=== PATIENT | male | born 1965 | race Two or more races ===

== ENCOUNTER 2020-03-16 12:54 | Outpatient (CLI) | payer OTHER, SELFPAY | END 2020-03-16 12:55 | disposition home or self-care (01) | LOC: ANHAUDIO 12:56 | PROVIDERS: PCP Internal Medicine; Visit Provider Otolaryngology | DX: H90.42 Sensorineural hearing loss, unilateral, left ear, with unrestricted hearing on the contralateral side (principal) | CPT/HCPCS: 92557; 92567 ==

== ENCOUNTER → 2021-12-09 10:07 | Outpatient (CLI) | payer OTHER, SELFPAY ==
--- NOTE | ~2021-12-09 | XR_ITS ---
EXAMINATION: XR lumbar spine 6V w bending DATE: 12/09/2021 12:52 INDICATION: Low back pain TECHNIQUE: Anteroposterior, lateral in neutral, flexion and extension, and bilateral oblique views of the lumbar spine, and cone-down lateral view of the lumbosacral junction were obtained. COMPARISON: None. FINDINGS: There is no fracture, dislocation, or subluxation. No laxity is present with flexion or ext ension. The vertebral body heights are normal. There is mild loss of intervertebral disc space height at multiple levels in the lumbar spine. The vertebral body heights are normal. Small degenerative os teophytes project from the anterior endplates of multiple vertebral bodies. IMPRESSION: 1. Mild lumbar spondylosis without acute findings. Reviewed, dictated and finalized at location F. AND FRAME MECHANIC
== END ==
PROVIDERS: PCP Internal Medicine; Visit Provider Internal Medicine
DX: M54.9 Dorsalgia, unspecified (principal); M47.816 Spondylosis without myelopathy or radiculopathy, lumbar region
CPT/HCPCS: 72114

== ENCOUNTER → 2022-02-16 08:06 | Outpatient (CLI) | payer OTHER, SELFPAY ==
[2022-02-16 11:03] LABS: Influenza A QL RT-PCR Negative (Negative); Influenza B QL RT-PCR Negative (Negative); SARS-CoV-2 RNA PCR Negative
== END ==
PROVIDERS: PCP Internal Medicine; Visit Provider Nurse Practitioner
DX: R68.89 Other general symptoms and signs (principal); Z20.822 Contact with and (suspected) exposure to COVID-19
CPT/HCPCS: 87502; C9803; U0003; U0005

== ENCOUNTER 2022-12-22 05:00 | Emergency (ER) | payer OTHER, SELFPAY ==
[2022-12-22] VITALS (12 sets, daily range): BP systolic 126–146; BP diastolic 67–89; PULSE 70–90; RESP 16–24; TEMP 37.1–38.2; O2SAT 95–96
--- NOTE | ~2022-12-22 | XR_ITS ---
EXAMINATION: XR chest 1V portable DATE: 12/22/2022 06:32 INDICATION: Cough TECHNIQUE: frontal view of the chest was obtained. COMPARISON: None FINDINGS: Mild curvilinear discoid atelectasis at the lateral left lung base. There is some mild bronchial wall thickening in the left perihilar region. No other airspace opacities, pulmonary edema, pleural effus ion or pneumothorax. The cardiomediastinal silhouette is normal. Visualized bones and soft tissues ar e unremarkable. IMPRESSION: 1. Mild bronchial wall thickening in the left perihilar region which be seen with bronchitis or react shantanu airway disease/asthma. Reviewed, dictated and finalized at location A. NG MILL OPERATOR IMPRESSION: 1. Mild bronchial wall thickening in the left perihilar region which be seen wi th bronchitis or reactive airway disease/asthma.
--- NOTE | 2022-12-22 05:30 | PC.NURSE ---
Pt c/o suprapubic pain, burning with urination, urinary urgency, and hesitancy. He was diagnosed with a UTI on Saturday and has been taking macrobid. Pt reports ongoing fevers at home that are temporarily resolved with ibuprofen but come back. He also c/o headache, dry cough, and feeling SOB. Pt is tachypneic breathing 24-30 breaths per minute. Denies chest pain. +Nausea. Denies vomiting.
[2022-12-22] MEDS: SODIUM CHLORIDE 0.9% IV 1,000 ML 999 ML IV CONT (05:39)
--- NOTE | 2022-12-22 06:01 | ED.GENADULT ---
HPI - General Adult General Chief complaint: Fever <David Tillman MD - Last Filed: 12/22/22 07:14> Stated complaint: Fever x4 days, dx uti <David Tillman MD - Last Filed: 12/22/22 07:14> Time Seen by Provider: 12/22/22 05:23 <David Tillman MD - Last Filed: 12/22/22 07:14> History of Present Illness HPI narrative: Patient is a 57-year-old gentleman who presents the emergency department with chief complaint of fever. Patient reports that he was seen in urgent care this week and was having fever body aches and generalized malaise the patient also reports he has had some urinary frequency and burning with urination. The patient was diagnosed with a urinary tract infection and started on Macrobid patient reports he is continue to have fevers and also reports that he developed a cough. Patient reports the symptoms are not improving and in fact worsening patient reports he last took ibuprofen several hours ago and has not taken any Tylenol. <David Tillman MD - Last Filed: 12/22/22 07:14> Related Data Home medications: Home Medications Medication Instructions Recorded Confirmed cholecalciferol (vitamin D3) 25 1,000 unit PO DAILY 08/20/19 09/27/22 mcg (1,000 unit) capsule (Vitamin D3) <David Tillman MD - Last Filed: 12/22/22 07:14> Allergies/adverse reactions: Allergies Allergy/AdvReac Type Severity Reaction Status Date / Time RED WINE AdvReac Intermediate Other Uncoded 09/27/22 09:04 <David Tillman MD - Last Filed: 12/22/22 07:14> Review of Systems Review of Systems: A 10 system review of systems was completed on the patient and is negative except for what is stated in the HPI. Nursing and ancillary documentation was reviewed. <David Tillman MD - Last Filed: 12/22/22 07:14> [facility] Past Medical History Medical History: Medical History GERD (gastroesophageal reflux disease) Obesity <David Tillman MD - Last Filed: 12/22/22 07:14> Social History Social History: Social History Smoking status: Never smoker Alcohol intake: current Drinks per week: 1 Alcohol use details: patient may 1 or 2 drinks once a month Substance use: never Substance use type: does not use Lack of Transportation: No Lack of Food: Never True Current Housing: I Have Housing Concerned About Future Housing: No Difficulty Paying Gas/Electric Bills: No Difficulty Paying for Meds: No Currently Unemployed: No Education: Master's Degree or Higher Difficulty w/ Childcare or Family Care: No Living arrangements: alone Occupation/Education: occupation Gender identity (if verbalized by the patient): Male <David Tillman MD - Last Filed: 12/22/22 07:14> Exam Narrative: GENERAL: Well-appearing, well-nourished, and in no acute distress. HEAD: Normocephalic, atraumatic. EYES: PERRLA and EOMI. ENT: Nares clear, no rhinorrhea or epistaxis. Mucous membranes moist. NECK: Supple. CHEST: Clear to auscultation. No respiratory distress. HEART: Regular rate and rhythm. No murmur heard. Normal peripheral pulses. ABDOMEN: Soft, nontender, nondistended, normal active bowel sounds. : No tenderness to palpation, no swelling descended testes no erythema no crepitance no necrotic tissue EXTREMITIES: Normal range of motion. No edema. SKIN: Warm, dry, no rash. NEURO: No focal deficits. Alert and oriented x3. PSYCH: Normal mood and affect. <David Tillman MD - Last Filed: 12/22/22 07:14> Course Reevaluation(s) Reevaluation #1: Patient care was initially signed out to me by Dr. Tillman but patient was discharged by Dr. Tillman prior to the end of his shift. I did not assume care of this patient. <Wil Rangel MD - Last Filed: 12/22/22 10:39>
[2022-12-22 06:18] LABS: Basophils Percent Auto 0.4 % (0.2-1.2); Eosinophils Percent Auto 0.1 % (0-4.4); Hematocrit 39.8 % (42.0-52.0); Hemoglobin 13.9 g/dL (14.0-18.0); Immature Granulocyte Absolute 0.09 K/mm3 (0.00-0.031); Lymphocytes Percent Auto 11.9 % (18.3-44.2); Mean Corpuscular HGB Conc 34.9 g/dl (32-36); Mean Corpuscular Hemoglobin 31.7 pg (26-34); Mean Corpuscular Volume 90.9 fl (80-100); Mean Platelet Volume 10.2 fl (7.4-10.4); Monocytes Absolute Auto 0.8 K/mm3 (0.1-0.6); Monocytes Percent Auto 8.9 % (2.6-8.5); Neutrophils Absolute Auto 7.2 K/mm3 (1.3-6.7); Neutrophils Percent Auto 77.7 % (45.5-73.1); Platelet Count Result 262 k/mm3 (150-375); Red Blood Count 4.38 M/mm3 (4.6-6.20); Red Cell Distribution Width 12.4 % (11.5-14.5); White Blood Count 9.2 K/mm3 (4.5-10.0)
[2022-12-22 06:29] LABS: Appearance Urine Clear (Clear); Bacteria Urine None Seen /hpf; Bilirubin Urine Negative (Negative); Blood Urine 2+ (Negative); Color Urine Yellow (Yellow); Glucose Urine UA Negative (Negative); Ketones Urine Trace mg/dL (Negative); Leukocyte Esterase Ur 1+ LEU/UL (Negative); Nitrate Urine Negative (Negative); Non Pathogenic Casts 0-2; Protein Urine 2+ mg/dL (Negative); Specific Grav Ur 1.019 (1.001-1.035); Squamous Epithelial Cell Urine Occasional /hpf (Few); Urobilinogen Urine 0.2 mg/dL (<2.0); WBC Urine 21-50 /hpf
[2022-12-22 06:30] LABS: Alanine Aminotransferase 116 U/L (6-50); Albumin Level 4.1 g/dL (3.5-5.1); Alkaline Phosphatase 201 U/L (38-126); Anion Gap 7 mmol/L (8-16); Aspartate Amino Transferase 126 U/L (17-59); Bilirubin,Total 1.1 mg/dL (0.2-1.3); Blood Urea Nitrogen 13 mg/dL (9-20); Calcium 8.4 mg/dL (8.4-10.2); Carbon Dioxide 23 mmol/L (22-30); Chloride 103 mmol/L (98-107); Estimated CRCL calculation 83 ml/min; Estimated Glomerular Filt Rate > 60; Glucose 123 mg/dL (65-110); Lactic Acid Reflex 0.8 mmol/L (0.7-2.0); Potassium 3.6 mmol/L (3.4-5.0); Sodium 133 mmol/L (137-145)
[2022-12-22 06:50] LABS: Add Urine Microscopic? YES
[2022-12-22 06:55] LABS: Influenza A QL RT-PCR Negative (Negative); Influenza B QL RT-PCR Negative (Negative); RSV RNA, RT-PCR Negative (Negative); SARS-CoV-2 RNA PCR Negative
[2022-12-22 07:24] LABS: Procalcitonin 1.2 ng/mL
== END 2022-12-22 08:01 | disposition home or self-care (01) ==
PROVIDERS: Emergency Provider Emergency Medicine; PCP Internal Medicine
DX: N39.0 Urinary tract infection, site not specified (principal); J18.9 Pneumonia, unspecified organism; Z20.822 Contact with and (suspected) exposure to COVID-19; K21.9 Gastro-esophageal reflux disease without esophagitis
CPT/HCPCS: 36415; 71045; 80053; 81001; 83605; 84145; 85025; 87040; 87086; 87637; 96361; 96365; 96375; 99284; J0131; J0696; J7030

== ENCOUNTER 2023-04-13 10:58 | Outpatient (CLI) | payer SELFPAY ==
[2023-04-13 13:13] LABS: Hepatitis B Surface Antigen Negative (Negative)
[2023-04-13 13:30] LABS: HIV 1/2 Ab P24 Ag Result Negative (Negative); Hepatitis C Virus Antibody Negative (Negative)
== END 2023-04-13 10:59 | disposition home or self-care (01) ==
PROVIDERS: PCP Family Medicine; Visit Provider Family Medicine
DX: T14.8XXA Other injury of unspecified body region, initial encounter (principal); X58.XXXA Exposure to other specified factors, initial encounter
CPT/HCPCS: 36415; 86703; 86803; 87340; G0432

== ENCOUNTER 2023-10-22 09:04 | Outpatient (CLI) | payer OTHER, SELFPAY ==
--- NOTE | ~2023-10-22 | XR_ITS ---
Right Shoulder Technique: AP and scapular Y views were obtained. Clinical History: Pain Findings: No fracture or dislocation is seen. Osseous alignment is anatomic. The glenohumeral and acr omioclavicular joint spaces are preserved. Soft tissues are unremarkable. Impression: Unremarkable right shoulder radiographs. [place] [facility] [place] Impression: Unremarkable right shoulder radiographs.
== END 2023-10-22 09:05 | disposition home or self-care (01) ==
LOC: ANHIMG 09:07
PROVIDERS: PCP Family Medicine; Visit Provider Family Medicine
DX: M25.511 Pain in right shoulder (principal)
CPT/HCPCS: 73030

== ENCOUNTER 2023-10-27 07:39 | Outpatient (CLI) | payer OTHER, SELFPAY ==
--- NOTE | ~2023-10-27 | MR_ITS ---
MRI of the right shoulder Technique: Axial proton-density fat-sat images, coronal proton density fat-sat and T2 fat-sat images, and sagittal T1-weighted and T2 fat-sat images were acquired. Clinical History: Pain Findings: There is mild AC joint degenerative change. Coracoclavicular, coracoacromial, and coracohum eral ligaments are intact. There is full-thickness tear involving the majority of the supraspinatus tendon, with fluid-filled ga p measuring 1.7 x 1.6 cm in extent. Infraspinatus tendon is intact, with mild to moderate tendinosis. Subscapularis tendon is intact, with advanced tendinosis. Tendon of long head of the biceps is intac t. There is probable focal superior degenerative labral tearing. Inferior glenohumeral ligament is intact. No degenerative change or effusion of the glenohumeral join t. No muscle atrophy or edema. There is minimal fluid in the subacromial/subdeltoid bursa. Impression: Complete, full-thickness tear involving nearly entire supraspinatus tendon, as detailed above. Background rotator cuff tendinosis of the infraspinatus and subscapularis tendons, as detailed above. Probable focal superior degenerative labral tear. Mild AC joint degenerative change. Reviewed, dictated and finalized at location . PROCESSOR Impression: Complete, full-thickness tear involving nearly entire supraspinatus tendon, as detailed above. Background rotator cuff tendinosis of the infraspinatus and subscapularis tendo ns, as detailed above. Probable focal superior degenerative labral tear. Mild AC joint degenerative change.
== END 2023-10-27 07:40 | disposition home or self-care (01) ==
PROVIDERS: PCP Family Medicine; Visit Provider Family Medicine
DX: M75.121 Complete rotator cuff tear or rupture of right shoulder, not specified as traumatic (principal); M75.81 Other shoulder lesions, right shoulder; M19.011 Primary osteoarthritis, right shoulder
CPT/HCPCS: 73221

== ENCOUNTER 2023-12-19 08:52 | Outpatient (CLI) | payer OTHER, SELFPAY ==
[2023-12-19 10:05] LABS: Strep Group A RT-PCR NOT DETECTED (Negative)
[2023-12-19 10:18] LABS: Influenza A QL RT-PCR Negative (Negative); Influenza B QL RT-PCR Negative (Negative); RSV RNA, RT-PCR Negative (Negative); SARS-CoV-2 RNA PCR Negative (Negative)
== END 2023-12-19 08:53 | disposition home or self-care (01) ==
LOC: ANHLAB 08:53
PROVIDERS: PCP Family Medicine; Visit Provider Nurse Practitioner Family
DX: R09.89 Other specified symptoms and signs involving the circulatory and respiratory systems (principal); Z20.822 Contact with and (suspected) exposure to COVID-19
CPT/HCPCS: 87637; 87651

== ENCOUNTER 2024-02-19 15:30 | Outpatient (CLI) | payer OTHER, SELFPAY ==
--- NOTE | 2024-02-19 15:43 | ECG_ITS ---
SEE SCANNED COPY FOR CONFIRMED REPORT MTDD
== END 2024-02-19 15:31 | disposition home or self-care (01) ==
LOC: ANHSURGERY 15:33
PROVIDERS: PCP Family Medicine; Visit Provider Orthopaedic Surgery
DX: Z01.818 Encounter for other preprocedural examination (principal); E78.5 Hyperlipidemia, unspecified; R94.31 Abnormal electrocardiogram [ECG] [EKG]
CPT/HCPCS: 93005

== ENCOUNTER 2024-02-21 01:56 | Day surgery (SDC) | payer OTHER, SELFPAY ==
[2024-02-17 09:54] VITALS: BMI 33.0
--- NOTE | 2024-02-17 10:01 | PC.NURSE ---
Report to the Outpatient Waiting Room, entrance under the green pavilion located off [address], at time _1000_ on date _[id number]_. Planned Procedure Time: _1200_. Time changes happen often and if your time is changed the preop area will call you the afternoon before. - You and your visitor will be asked to self-screen and do not enter if you have any COVID symptoms. - A mask is optional within the hospital at this time. Patients may have clear liquids (water, carbonated beverages, clear teas, apple juice) until 3 hours prior to surgery with a maximum of 20 ounces. - No food from midnight until time of surgery Take the following medications with a SIP of water the morning of surgery: ___Pain medication if needed. DO NOT STOP ANY OF YOUR OTHER PRESCRIPTION MEDICATIONS PRIOR TO SURGERY ?EXCEPT THE FOLLOWING Medications to discontinue per physician Vitamin D3 Date to take last zdll___[id number] Please no make-up, nail ukrainian, hairspray, perfume, deodorant, or body powder the day of surgery. No jewelry (including any body piercings) or valuables the day of surgery, leave them at home. Please take a shower or bath the night before, or the morning of, surgery with an antibacterial soap. Wear comfortable, loose fitting clothing. - Jewelry must be removed prior to entering the operating room. Rings and piercings that are not removed may be cut off. - The hospital will not accept responsibility for valuables. - Please leave all valuables, including medications, at home the day of surgery. If you are going home after surgery, a licensed short haul driver must drive you home. - NO public transportation without another adult if you receive anesthesia. - We recommend that an adult stay with you for 24 hours following discharge. - We also recommend that you do not drive, make important decision, drink alcoholic beverages, or take any drugs that were not prescribed by your health care provider for at least 24 hours after your discharge time. Follow any additional instructions given to you from your surgeon. If you or anyone in your household have experienced Covid symptoms in the past week, please notify your surgeon or the nurse liaison at the phone number below for possible testing. Telephone instructions given to __Alejandro____and asked if any additional questions and then verbalized understanding. Patient advised to call surgeon office or pre surgery nurse liaison [phone] if any additional questions.
[2024-02-21] VITALS (12 sets, daily range): BP systolic 116–161; BP diastolic 58–96; PULSE 71–89; RESP 10–17; TEMP 36.3–36.6; O2SAT 91–98; BMI 32.2
[2024-02-21] MEDS: ACETAMINOPHEN 500 MG TABLET 1000 MG PO (09:24)
--- NOTE | 2024-02-21 09:24 | WPDANESEPPF ---
Anes - Initial Pre Proc Eval Procedure: Operation Date: 02/21/24 10:00 Proposed Procedures p Right Shoulder Arthroscopic Rotator Cuff Repair, Subacromial Decompression, Distal Clavicle Excision, Biceps Tenodesis - Roosevelt Maharaj MD Date/Time: 02/21/24 09:24 Surgeon: Roosevelt Maharaj MD Pre Op Diagnosis: right roator cuff tear, biceps tendonosis Patient Data Age: 59 Gender: M Height: 1.7 m Weight: 95.5 kg Allergies Allergy/AdvReac Type Severity Reaction Status Date / Time RED WINE AdvReac Intermediate Other Uncoded 02/17/24 10:18 Home Medications Medication Instructions Recorded Confirmed Type cholecalciferol (vitamin D3) 25 1,000 unit PO DAILY 08/20/19 02/17/24 History mcg (1,000 unit) capsule (Vitamin D3) tamsulosin 0.4 mg capsule (Flomax) 0.4 mg PO DAILY #90 caps 06/26/23 02/17/24 Rx rosuvastatin 10 mg tablet (Crestor) 10 mg PO DAILY #90 tabs 10/11/23 02/17/24 Rx famotidine 20 mg tablet (Pepcid) 20 mg PO DAILY 01/29/24 02/17/24 History hydrocodone 5 mg-acetaminophen 325 1 - 2 tablet PO Q12H PRN pain #30 01/29/24 02/17/24 Rx mg tablet tabs Patient hx anesthesia problems: none Family hx anesthesia problems: none Results Review: All pre-operative results and documents have been reviewed as part of the pre-operative evaluation. [facility] Past Medical History Medical History GERD (gastroesophageal reflux disease) Obesity Social History Social History Smoking status: Never smoker Alcohol intake: current Drinks per week: 2 Alcohol use details: patient may 1 or 2 drinks once a month Substance use: never Substance use type: does not use Lack of Transportation: No Lack of Food: Never True Current Housing: I Have Housing Concerned About Future Housing: No Difficulty Paying Gas/Electric Bills: No Difficulty Paying for Meds: No Currently Unemployed: No Education: Grade School Difficulty w/ Childcare or Family Care: No Living arrangements: with family Occupation/Education: occupation Gender identity (if verbalized by the patient): Male Spiritual care concerns: No Anes - Eval Final PreProcedure Day of Procedure 02/21/24 09:24 Patient weight: obese Heart: regular rate and rhythm Lungs: clear to auscultation Airway: Mallampati scale class II Neurological: alert and oriented Last oral intake: >/= 8 hours ASA classification: II Emergent: no Anesthetic plan: proceed Anesthesia type and monitoring: general ETT and standard monitoring Results Review: All pre-operative results and documents have been reviewed as part of the pre-operative evaluation. Informed Consent: The patient's anesthetic plan and its attendant risks and benefits were discussed with the patient/family/POA. Questions were solicited and answers provided to the satisfaction of the patient/family/POA.
[2024-02-21] MEDS: KETOROLAC 15 MG/ML VIAL (*BKC) IV PUSH (09:25)
[2024-02-21] MEDS: LACTATED RINGERS 1,000 ML 30 ML IV CONT ×2 (09:41→12:49)
--- NOTE | 2024-02-21 09:56 | WPDHPUPDATE1 ---
History and Physical Update Update Date/Time: 02/21/24 09:56 History and Physical has been reviewed, including an updated exam of the patient. There are NO changes in the patient's condition. Risks, benefits, and alternatives have been discussed and questions answered. Patient agrees to proceed with procedure.
[2024-02-21] MEDS: ceFAZolin 2 GM/D5W 50 ML 2 GM/50 ML BAG IVPB (09:59)
[2024-02-21] MEDS: BUPIVACAINE/EPINEPHRINE 0.5% 10 ML VIAL 20 ML INFILTRATE (11:04)
[2024-02-21] MEDS: EPINEPHrine HCL INJ 1 MG/ML AMPUL 3 MG IRRIGATION (11:13)
--- NOTE | 2024-02-21 13:57 | WPDANESPNB ---
Anes - Peripheral Nerve Block Date/Time: 02/21/24 13:57 I have discussed with the patient/family/POA the placement of a peripheral nerve block for post-operative pain management, including associated risks, benefits, complications, and side effects. Alternative methods of post-operative analgesia were detailed. Questions were solicited and answers provided to the satisfaction of the patient/family/POA. Time-Out: A pre-procedural Time-Out was completed immediately before starting the procedure and confirmed: Patient Identification, Site, Procedure, Patient Position and the Availability of Requisite Equipment. Clinical Indications: Acute post-operative pain management requested by the operative surgeon. Nerve Block Insertion Note Anes-nerve block: interscalene right Patient position: supine Skin prep: chlorhexidine Needle: 22 gauge, stimulating, insulated echogenic needle. Needle length: 50 mm Technique: nerve stimulation lost at (mA) (0.3) and ultrasound Technique comment: done in PACU no sedation Injectate: bupivacaine 0.5% with epi 5 mcg/ml (30ml) Observations: tolerated well Complications: none Procedure start time:: 1339 Procedure end time:: 1346
--- NOTE | 2024-02-21 15:48 | SUR.PHASEII ---
Vital signs stable. IV removed. Patient helped with dressing. Sitting in recliner chair waiting on ride home.
--- NOTE | 2024-02-21 16:37 | W.PM.PROC2 ---
Procedure Note - Detailed Date of Procedure 02/21/24 Pre-op Diagnosis Right shoulder rotator cuff tear, biceps tendinosis, Impingement syndrome, A/C joint arthritis Post-op Diagnosis Other (1. Rotator cuff tear 2. Subacromial impingement 3. Biceps tendinosis 4. A/C joint arthritis 5. Contracture of joint) Procedure Performed Right shoulder 1. Arthroscopic rotator cuff repair 2. Arthroscopic subacromial decompression 3. Arthroscopic biceps tenodesis 4. Arthroscopic distal clavicle excision 5. Manipulation under anesthesia Surgeon Roosevelt Maharaj MD Renewable Energy Engineer Maria Isabel Stahl PA-C Anesthesia General and Regional ( interscalene block) Findings Medium-sized full-thickness rotator cuff tear. Significant biceps tendinosis. Minimal humeral chondromalacia. Contracture noted preoperatively with external rotation limited to 1-20 degrees. Manipulation was performed. The shoulder released to 60? external rotation. Other planes were within normal limits. No further significant contracture was noted arthroscopically. Debridement of the rotator interval was performed. Subscapularis was intact. Description of Procedure Preoperative antibiotics were given. An interscalene block was administered in the preoperative area. The patient was bought brought to the operating room. A general anesthetic was administered. The patient was carefully positioned in the beach chair position. The head and neck were carefully positioned. The non operative extremity was also carefully positioned. The shoulder was prepped and draped in the usual sterile fashion. Examination was performed. Standard posterior and anterior arthroscopic portals were established. Inflow achieved with the arthroscopic pump using saline and epinephrine. The glenohumeral joint was carefully inspected. Minimal humeral chondromalacia. Severe fraying of the biceps tendon. Subscapularis intact. Medium full-thickness supraspinatus tear. Attention was turned to the subacromial space. A complete bursectomy was performed. The rotator cuff and footprint were lightly debrided. A modest acromioplasty was performed. The tear configuration was carefully assessed. At this point, 2 tunnels were created at the rotator cuff. The ArthroTunneler technique was utilized. Three sutures were passed through each tunnel. All sutures were then passed through the cuff tissue. The Xbox technique was utilized. Three supplemental horizontal mattress sutures were placed anterior posterior and centrally. These were brought to a SwiveLock laterally. The anterior mattress suture was incorporated with the biceps tendon for tenodesis of the biceps tendon. The distal clavicle was excised arthroscopically through an accessory anterior portal. The 70 degree scope was used to confirm complete excision of approximately 1 cm of bone. The sutures were tied arthroscopically. The arthroscopic instruments were removed. The wounds were closed with 3-0 Monocryl subcuticular suture and steri strips. There were no complications. A sling was applied and the patient brought to the recovery room. Physician medical billing assistant, Maria Isabel Stahl PA-C, required for surgery; including patient positioning, draping, arthroscopic camera operation, maintaining instrument position, suture retrieval, wound closure, and dressing and sling placement. Implants Swivel lock anchor, Arthrex, 4.75mm. Estimated Blood Loss 20 Pathology None sent Complications No immediate complications Condition Stable Disposition PACU [facility] Billing Surgery - Charge Forward: Surgery Billing
== END 2024-02-21 15:55 | disposition home or self-care (01) ==
PROVIDERS: PCP Family Medicine; Visit Provider Orthopaedic Surgery
PROC: (CPT 29805; principal; 2024-02-21 10:00)
DX: M75.121 Complete rotator cuff tear or rupture of right shoulder, not specified as traumatic (principal); M75.41 Impingement syndrome of right shoulder; M75.21 Bicipital tendinitis, right shoulder; M19.011 Primary osteoarthritis, right shoulder; M24.511 Contracture, right shoulder; G89.18 Other acute postprocedural pain; K21.9 Gastro-esophageal reflux disease without esophagitis; E66.9 Obesity, unspecified; Z68.32 Body mass index [BMI] 32.0-32.9, adult
CPT/HCPCS: 29827; 29828; 29826; 29824; 64415; A4565; A9270; C1713; J0171; J0690; J1100; J1170; J1596; J1885; J2250; J2371; J2405; J2704; J3010; J7120

== ENCOUNTER 2024-08-04 16:05 | Outpatient (CLI) | payer OTHER, SELFPAY ==
--- NOTE | ~2024-08-04 | XR_ITS ---
XR knee RT min 4V 08/04/2024 16:20 Indication: Right knee pain Procedure: 4 views right knee Comparison: No prior studies for comparison. Findings: No fracture, subluxation or dislocation. No significant joint effusion. No foreign bodies. Impression: 1: No significant bone or joint abnormality. Reviewed, dictated and finalized at location B. Impression: 1: No significant bone or joint abnormality.
== END 2024-08-04 16:06 | disposition home or self-care (01) ==
LOC: MICIMG 16:06
PROVIDERS: PCP Family Medicine; Visit Provider Family Medicine
DX: M25.561 Pain in right knee (principal)
CPT/HCPCS: 73564

== ENCOUNTER 2025-02-23 10:02 | Outpatient (CLI) | payer OTHER, SELFPAY ==
--- NOTE | ~2025-02-23 | US_ITS ---
Limited Abdominal Sonogram: Real-time sonographic imaging of the left upper quadrant was performed. Clinical History: Left upper quadrant pain Findings: Spleen unremarkable. Left kidney measures 12.2 cm in length. No left hydronephrosis or left renal stone.. Impression: No significant abnormality seen. Reviewed, dictated and finalized at [facility]. Impression: No significant abnormality seen.
== END 2025-02-23 10:03 | disposition home or self-care (01) ==
LOC: MICIMG 10:03
PROVIDERS: PCP Family Medicine; Visit Provider Family Medicine
DX: R10.12 Left upper quadrant pain (principal)
CPT/HCPCS: 76705

== ENCOUNTER 2025-09-03 02:20 | Day surgery (SDC) | payer OTHER, SELFPAY ==
[2025-08-17 15:01] VITALS: BMI 29.8
--- NOTE | 2025-09-03 09:41 | WPDANESEPPF ---
Anes - Initial Pre Proc Eval Procedure: Operation Date: 09/03/25 11:00 Proposed Procedures p Screening Colonoscopy - Bryant Gallardo MD Date/Time: 09/03/25 09:41 Surgeon: Bryant Gallardo MD Pre Op Diagnosis: Screening Patient Data Age: 60 Gender: M Height: 1.7 m Weight: 86.4 kg Allergies Allergy/AdvReac Type Severity Reaction Status Date / Time RED WINE AdvReac Mild Other Uncoded 08/19/25 10:23 Home Medications ?Medication ?Instructions ?Recorded ?Confirmed ?Type cholecalciferol (vitamin D3) 25 1,000 unit PO DAILY 08/20/19 08/17/25 History mcg (1,000 unit) capsule (Vitamin D3) famotidine 20 mg tablet (Pepcid) 20 mg PO DAILY 01/29/24 08/17/25 History tamsulosin 0.4 mg capsule (Flomax) 0.8 mg (2 x 0.4 mg) PO DAILY #180 02/03/25 08/17/25 Rx caps rosuvastatin 10 mg tablet 10 mg PO DAILY #90 tabs 05/05/25 08/17/25 Rx glucosamine 1500 chondrotin 1200 PO 08/19/25 History turmeric root extract 500 mg 500 mg PO DAILY 08/19/25 History capsule Patient hx anesthesia problems: none Family hx anesthesia problems: none Results Review: All pre-operative results and documents have been reviewed as part of the pre-operative evaluation. [facility] Past Medical History Medical History Obesity GERD (gastroesophageal reflux disease) Surgical History Surgical History History of repair of right rotator cuff (~02/21/24) SAD, DCE, Biceps Tenodesis Social History Social History Smoking status: Never smoker Alcohol intake: current Drinks per week: 2 Alcohol use details: patient may 1 or 2 drinks once a month Substance use: never Substance use type: does not use Do You Feel Safe in your Home?: Yes Lack of Transportation: No Lack of Food: Never True Current Housing: I Have Housing Concerned About Future Housing: No Difficulty Paying Gas/Electric Bills: No Difficulty Paying for Meds: No Currently Unemployed: No Education: Master's Degree or Higher Difficulty w/ Childcare or Family Care: No Living arrangements: with family Occupation/Education: occupation Gender identity (if verbalized by the patient): Male Sexual Orientation (if Verbalized by the Patient): Straight or Heterosexual Spiritual care concerns: No Agree to blood products: Yes Anes - Eval Final PreProcedure Day of Procedure 09/03/25 09:41 Patient weight: overweight Heart: regular rate and rhythm Lungs: clear to auscultation Airway: Mallampati scale class II Neurological: alert and oriented Last oral intake: >/= 8 hours ASA classification: II Emergent: no Anesthetic plan: proceed Anesthesia type and monitoring: general GIVS and standard monitoring Results Review: All pre-operative results and documents have been reviewed as part of the pre-operative evaluation. Informed Consent: The patient's anesthetic plan and its attendant risks and benefits were discussed with the patient/family/POA. Questions were solicited and answers provided to the satisfaction of the patient/family/POA.
[2025-09-03 10:03] VITALS: BP 139/82; PULSE 62; RESP 16; TEMP 36.9; O2SAT 97; BMI 31.4
[2025-09-03] MEDS: LACTATED RINGERS 1,000 ML 150 ML IV CONT (10:16)
--- NOTE | 2025-09-03 11:17 | PM.IMHP ---
H&P: HPI History of Present Illness Date/Time: 09/03/25 11:17 Chief Complaint: Screening colonoscopy Narrative: This is the patient's first colonoscopy. There are no GI symptoms and there is no family history of colorectal cancer. Review of Systems Review of Systems: All systems reviewed & are unremarkable except as noted in HPI and below PMFSH Past Medical History Medical History Obesity GERD (gastroesophageal reflux disease) Surgical History Surgical History History of repair of right rotator cuff (~02/21/24) SAD, DCE, Biceps Tenodesis Social History Social History Smoking status: Never smoker Alcohol intake: current Drinks per week: 2 Alcohol use details: patient may 1 or 2 drinks once a month Substance use: never Substance use type: does not use Do You Feel Safe in your Home?: Yes Lack of Transportation: No Lack of Food: Never True Current Housing: I Have Housing Concerned About Future Housing: No Difficulty Paying Gas/Electric Bills: No Difficulty Paying for Meds: No Currently Unemployed: No Education: Master's Degree or Higher Difficulty w/ Childcare or Family Care: No Living arrangements: with family Occupation/Education: occupation Gender identity (if verbalized by the patient): Male Sexual Orientation (if Verbalized by the Patient): Straight or Heterosexual Spiritual care concerns: No Agree to blood products: Yes Meds Home Medications and Allergies Home Medications ?Medication ?Instructions ?Recorded ?Confirmed ?Type cholecalciferol (vitamin D3) 25 1,000 unit PO DAILY 08/20/19 09/03/25 History mcg (1,000 unit) capsule (Vitamin D3) famotidine 20 mg tablet (Pepcid) 20 mg PO DAILY 01/29/24 09/03/25 History tamsulosin 0.4 mg capsule (Flomax) 0.8 mg (2 x 0.4 mg) PO DAILY #180 02/03/25 09/03/25 Rx caps rosuvastatin 10 mg tablet 10 mg PO DAILY #90 tabs 05/05/25 09/03/25 Rx glucosamine 1500 chondrotin 1200 PO 08/19/25 History turmeric root extract 500 mg 500 mg PO DAILY 08/19/25 09/03/25 History capsule Allergies Allergy/AdvReac Type Severity Reaction Status Date / Time RED WINE AdvReac Mild Other Uncoded 08/19/25 10:23 Vital Signs Vital Signs - 24 hr 09/03/25 10:03 Temperature 98.4 F Pulse Rate 62 Respiratory Rate 16 Blood Pressure 139/82 Pulse Oximetry 97 Oxygen Delivery Room Air Exam Const: General: cooperative and healthy appearing Resp: Effort & Inspection: normal respiratory effort and able to speak in complete sentences Auscultation: clear to auscultation bilaterally Cardio: Rate: regular rate Rhythm: regular rhythm GI: Inspection: normal to inspection GI Palp: No No hepatosplenomegaly present Auscultation: normal bowel sounds Rectal Exam: deferred Skin: General skin exam: normal color Psych: Appearance: grossly normal Mental Status: mental status grossly normal Assessment and Plan Assessment and plan (1) Colon cancer screening: Code(s): Z12.11 - Encounter for screening for malignant neoplasm of colon Status: Acute Assessment and Plan: The patient is deemed a good candidate for the procedure. Consent signed. Will proceed.
[2025-09-03 11:18] VITALS: BP 110/65; PULSE 62; RESP 21; O2SAT 98
[2025-09-03 11:28] VITALS: BP 108/66; PULSE 60; RESP 18; O2SAT 98
[2025-09-03 11:38] VITALS: BP 119/73; PULSE 59; RESP 13; O2SAT 98
== END 2025-09-03 11:44 | disposition home or self-care (01) ==
PROVIDERS: PCP Family Medicine; Referring Provider Family Medicine; Visit Provider Internal Medicine Gastroenterology
PROC: 0DJD8ZZ Inspection of Lower Intestinal Tract, Via Natural or Artificial Opening Endoscopic (ICD-10-PCS; CPT 45378; principal; 2025-09-03 11:00)
DX: Z12.11 Encounter for screening for malignant neoplasm of colon (principal); K21.9 Gastro-esophageal reflux disease without esophagitis; Z98.890 Other specified postprocedural states
CPT/HCPCS: 45378; J2003; J2704; J7120